=== PATIENT | female | born 1985 | race Caucasian/White ===

== ENCOUNTER 2020-10-28 16:14 | Emergency (ER) | payer BC, MEDICAID ==
--- NOTE | 2020-10-28 16:49 | EDM.PDOC ---
ED HPI GENERAL MEDICAL PROBLEM - General Chief Complaint: Bite:Animal, Insect Stated Complaint: INFECTION IN LEFT CHIN Time Seen by Provider: 10/28/20 16:30 Source of Information: Reports: Patient History Limitations: Reports: No Limitations - History of Present Illness INITIAL COMMENTS - FREE TEXT/NARRATIVE: 35-year-old female who has had a history of contact dermatitis from poison jacob in the past developed a small blistering lesion which was nonpainful on her left anterior lower leg 4 days ago. She has picked at it a few times, taken some Benadryl and some topical hydrocortisone and the overall swelling has decreased but the redness and irritability has increased and now she feels a firm cord under the skin laterally and is concerned there is an underlying infection or something more serious. Onset: Gradual Duration: Day(s): (Lesion has been present for 4 days) Location: Reports: Lower Extremity, Left Improves with: Reports: Other (Benadryl seems to help) Associated Symptoms: Reports: No Other Symptoms - Related Data Allergies Allergy/AdvReac Type Severity Reaction Status Date / Time No Known Allergies Allergy Verified 10/28/20 16:26 Home Meds: Home Meds NK [No Known Home Meds] 10/28/20 [History] Past Medical History UNDER SHERIFF History: Reports: Other (See Below) Other UNDER SHERIFF History: tube removal Hematologic History: Reports: None Social & Family History - Tobacco Use Tobacco Use Status *Q: Never Tobacco User ED ROS GENERAL - Review of Systems Review Of Systems: See Below Constitutional: Denies: Fever, Chills Respiratory: Reports: No Symptoms Cardiovascular: Reports: No Symptoms GI/Abdominal: Reports: No Symptoms Skin: Reports: Pruritis, Erythema Neurological: Reports: No Symptoms Psychiatric: Reports: No Symptoms ED EXAM, ANIMAL BITE - Physical Exam Exam: See Below Exam Limited By: No Limitations General Appearance: Alert, No Apparent Distress Respiratory/Chest: No Respiratory Distress Extremities: Other (On the left anterior lower extremity there is an erythematous lesion with medial extension across the anterior calderon with a small central papule oozing clear liquid. It is mildly tender to palpation) Neurological: Alert, Oriented Psychiatric: Normal Affect, Normal Mood Course - Vital Signs Last Recorded V/S: Last Vital Signs Temp 98.2 F 10/28/20 16:32 Pulse 91 10/28/20 16:32 Resp 20 10/28/20 16:32 BP 129/87 10/28/20 16:32 Pulse Ox 98 10/28/20 16:32 - Re-Assessments/Exams Free Text/Narrative Re-Assessment/Exam: 10/28/20 16:46 This patient has some type of inflammatory lesion on the left lower extremity which probably started out as a bug bite or contact dermatitis but is developing some cellulitis. Watchful waiting with topical steroid would have been an appropriate treatment but she is leaving for a week tomorrow and will be away from medical care. She will be placed on a tapering prednisone dose starting at 40 mg daily, and 7 days of cephalexin 500 mg 3 times a day. This should improve rapidly. Recheck at any time if worsening despite treatment. Departure - Departure Time of Disposition: 17:05 Disposition: Home, Self-Care 01 Clinical Impression: Cellulitis Qualifiers: Site of cellulitis: extremity Site of cellulitis of extremity: lower extremity Laterality: left Qualified Code(s): L03.116 - Cellulitis of left lower limb Contact dermatitis Qualifiers: Contact dermatitis type: allergic Contact dermatitis trigger: unspecified trigger Qualified Code(s): L23.9 - Allergic contact dermatitis, unspecified cause - Discharge Information Instructions: Cellulitis, Adult Referrals: PCP,None [Primary Care Provider] - Forms: ED Department Discharge Care Plan Goals: Take prednisone taper as prescribed, start tonight if able with food or you can wait till tomorrow morning but prednisone is just once daily. Start antibiotic today which is 3 times a day. Continue with topical Benadryl and oral Benadryl if needed, and increase activity as tolerated. Recheck at any time if worsening, or in 5 to 7 days if not improving satisfactorily. Sepsis Event Note (ED) - Evaluation Sepsis Screening Result: No Definite Risk
== END 2020-10-28 17:05 | disposition home or self-care (01) ==
LOC: JP.ED 16:14
DX: L03.116 Cellulitis of left lower limb (principal); L23.9 Allergic contact dermatitis, unspecified cause
CPT/HCPCS: 99283